=== PATIENT | female | born 1990 | race Caucasian/White ===

== ENCOUNTER 2023-06-24 14:28 | Outpatient (CLI) | payer SELFPAY ==
[~2023-06-24] VITALS: Ht 165.1 cm; Wt 97.5 kg
[2023-06-24] MEDS ORDERED: PRENATAL TABLET PO (14:51)
[2023-06-24] MEDS ORDERED: PROFERRIN ES12 MG (14:51)
[2023-06-24 15:10] VITALS: BP 115/57; PULSE 85; TEMP 97.7
[2023-06-24 15:35] VITALS: PULSE 79
--- NOTE | 2023-06-24 15:45 | NUR ---
ALL D/C INSTRUCTIONS REVIEWED AND UNDERSTOOD BY PT. PT DENIES FURTHER QUESTIONS AT THIS TIME. AMBULATORY FROM UNIT IN STABLE CONDITION.
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
== END 2023-06-24 15:45 ==
LOC: LDRO 14:28
DX: Z34.93 Encounter for supervision of normal pregnancy, unspecified, third trimester (principal); Z3A.30 30 weeks gestation of pregnancy

== ENCOUNTER 2023-08-21 05:29 | Inpatient (IN) | payer MEDICAID ==
[2023-08-21] VITALS (17 sets, daily range): BP systolic 63–134; BP diastolic 32–69; PULSE 50–90; TEMP 98–98.7
[~2023-08-21] VITALS: Ht 165.1 cm; Wt 109.5 kg
[~2023-08-21 05:29] MED LIST: PRENATAL TABLET PO; PROFERRIN ES12 MG
--- NOTE | 2023-08-21 05:40 | NUR ---
Ambulatory to unit for scheduled C/S, accompanied by significant other. Oriented to room, plan of care.
[2023-08-21 06:46] LABS: BASO % 0.3 % (0.0-2.0); EOS # 0.1 K/mm3 (0.0-0.7); EOS % 0.5 % (0.0-4.0); GRAN # 8.7 K/mm3 (1.4-6.5); GRAN % 78.3 % (42.2-75.2); HEMOGLOBIN 12.4 g/dl (12.5-16.0); LYMPH # 1.5 K/mm3 (1.2-3.4); LYMPH % 13.5 % (20.0-51.0); MEAN CELL VOLUME 93 fl (80.0-100.0); MEAN CORPUSCULAR HEMOGLOBIN 31 pg (27-31); MEAN CORPUSCULAR HGB CONC 34 g/dl (33.0-37.0); MEAN PLATELET VOLUME 10.6 fl (7.4-10.4); MONO # 0.7 K/mm3 (0.1-0.6); MONO % 6.3 % (1.7-9.3); PLATELET COUNT 173 K/mm3 (130-400); RED BLOOD COUNT 3.95 M/mm3 (4.10-5.30); REDCELL DISTRIBUTION WIDTH-CV 12.6 % (11.5-14.5)
[2023-08-21 06:47] LABS: HEMATOCRIT 36.6 % (37.0-47.0)
[2023-08-21] MEDS ORDERED: IBU800 M1 PO (13:00)
[2023-08-21] MEDS ORDERED: PERCOCET 325 MG1 TA2 PO (13:01)
[2023-08-22] VITALS: BP 112/65; PULSE 58; TEMP 98
[2023-08-22 08:30] VITALS: BP 127/61; PULSE 78; TEMP 98
--- NOTE | 2023-08-22 10:15 | NUR ---
Initial visit; Parents thanked for offering congratulations and God's blessings for the of their son. Scenic Artist thanked family for choosing our hospital and wished them a wonderful holiday season.
[2023-08-22 16:13] VITALS: BP 119/66; PULSE 68; TEMP 97.4
[2023-08-22 21:20] VITALS: BP 115/66; PULSE 68; TEMP 97.5
[2023-08-23 07:00] VITALS: BP 131/71; PULSE 77; TEMP 97.7
[2023-08-23] MEDS ORDERED: TYLENOL 500MG500 MG PO (08:39)
[2023-08-23] MEDS ORDERED: ROXICODONE 55 MG/TAB PO (08:39)
== END 2023-08-23 11:45 | disposition home or self-care (01) | DRG 788 ==
LOC: OB 05:29
PROVIDERS: ADMIT Student in an Organized Health Care Education/Training Program
PROC: 10D00Z1 Extraction of Products of Conception, Low, Open Approach (ICD-10-PCS; principal; 2023-08-21)
DX: O99.344 Other mental disorders complicating childbirth (principal); F41.9 Anxiety disorder, unspecified; F31.9 Bipolar disorder, unspecified; E55.9 Vitamin D deficiency, unspecified; O99.214 Obesity complicating childbirth; O69.81X0 Labor and delivery complicated by cord around neck, without compression, not applicable or unspecified; Z3A.39 39 weeks gestation of pregnancy; O99.284 Endocrine, nutritional and metabolic diseases complicating childbirth; Z87.440 Personal history of urinary (tract) infections; Z88.0 Allergy status to penicillin; Z37.0 Single live birth
CPT/HCPCS: J0171; J0665; J0690; J1100; J1885; J2405; J2590; J7120